=== PATIENT | female | born 1975 | race Caucasian/White ===

== ENCOUNTER 2016-12-18 01:24 | Emergency (ER) | payer OTHER ==
[~2016-12-18] VITALS: Ht 170.2 cm; Wt 150.0 kg
[2016-12-18] MEDS ORDERED: HYDROmorphone 1 MG/ML, 1ML IM ONE ×2 (02:00→04:30)
[2016-12-18] MEDS ORDERED: ONDANSETRON ODT 4 MG PO ONE (02:00)
[2016-12-18] MEDS ORDERED: HYDROmorphone 1 MG/ML, 1ML ONE ×2 (02:14→04:26)
[2016-12-18 02:21] LABS: HEMATOCRIT 41.2 % (34.6-47.8); WHITE BLOOD COUNT 9.5 x10^3/uL (3.4-10)
[2016-12-18 02:23] LABS: ASPARTATE AMINO TRANSFERASE 19 U/L (15-37); BLOOD UREA NITROGEN 9 mg/dL (7-18)
[2016-12-18 02:55] LABS: PATH.CAST-FLAG NOT PRESENT; SPERM-FLAG NOT PRESENT; SRC-FLAG NOT PRESENT; XTAL-FLAG NOT PRESENT; YLC-FLAG NOT PRESENT
[2016-12-18 03:25] VITALS: BP 103/82
[2016-12-19] MEDS ORDERED: OXYC5TAB3 PO (18:37)
[2016-12-19] MEDS ORDERED: TRAZ300T2 PO (18:38)
[2016-12-19] MEDS ORDERED: BUSP10TA PO (18:39)
[2016-12-19] MEDS ORDERED: VENL150C PO (18:39)
[2016-12-19] MEDS ORDERED: ESOM40CA PO (23:17)
[2016-12-19] MEDS ORDERED: DULO30CA2 PO (23:17)
[2016-12-19] MEDS ORDERED: FURO-93 PO (23:17)
[2016-12-19] MEDS ORDERED: RIVA20TA PO (23:17)
[2016-12-19] MEDS ORDERED: TOPI50TA35 PO (23:17)
[2016-12-19] MEDS ORDERED: CYCL-259 PO (23:17)
[2016-12-19] MEDS ORDERED: MONT10TA6 PO (23:17)
[2016-12-19] MEDS ORDERED: POTA99TA24 PO (23:17)
[2016-12-19] MEDS ORDERED: FLUT1AER NAS (23:17)
[2016-12-19] MEDS ORDERED: CIPR500T8 PO (23:17)
[2016-12-19] MEDS ORDERED: METO25TA9 PO (23:17)
[2016-12-19] MEDS ORDERED: CRAN500C PO (23:17)
== END 2016-12-18 04:37 | disposition home or self-care (01) ==
LOC: ED 01:57
DX: N39.0 Urinary tract infection, site not specified (principal); N10 Acute pyelonephritis; R60.0 Localized edema
CPT/HCPCS: 36415; 80053; 81001; 85025; 87086; 93970; 96372; 99285; J1170

== ENCOUNTER 2017-03-02 10:09 | Day surgery (SDC) | payer OTHER ==
[~2017-03-02] VITALS: Ht 170.2 cm; Wt 148.8 kg
[~2017-03-02 10:09] MED LIST: BUSP10TA PO; CIPR500T8 PO; CRAN500C PO; CYCL-259 PO; DOXY100T PO; DULO30CA2 PO; ESOM40CA PO; FLUT1AER NAS; FURO-93 PO; METO-282 PO; MONT10TA6 PO; OXYC5TAB3 PO; POTA99TA24 PO; RIVA20TA PO; TOPI50TA35 PO; TRAZ300T2 PO; VENL150C PO
[2017-03-02] MEDS ORDERED: LACTATED RINGERS 1,000 ML IV SCH (10:49)
[2017-03-02 10:56] VITALS: BP 132/86
[2017-03-02] MEDS ORDERED: PROPOFOL 10 MG/ML, 50ML ONE (12:52)
[2017-03-02] MEDS ORDERED: SUCCINYLCHOLINE 20 MG/ML, 10ML ONE (12:52)
[2017-03-02] MEDS ORDERED: DEXAMETHASONE 4 MG/ML, 1ML ONE (12:52)
[2017-03-02] MEDS ORDERED: PROMETHAZINE 25 MG/ML, 1ML IV PRN (13:30)
[2017-03-02] MEDS ORDERED: LABETALOL 5MG/ML, 20ML IV PRN (13:30)
[2017-03-02] MEDS ORDERED: MIDAZOLAM 1 MG/ML, 2ML IV PRN (13:30)
[2017-03-02] MEDS ORDERED: OXYcodone 5 MG/5 ML ORAL.SOL UDC PO PRN (13:30)
[2017-03-02] MEDS ORDERED: HYDROmorphone 1 MG/ML, 1ML IV PRN (13:30)
[2017-03-02] MEDS ORDERED: FENTANYL PF 100 MCG/2ML IV PRN (13:30)
[2017-03-02] MEDS ORDERED: EPHEDRINE 50 MG/ML, 1ML IVPush PRN (13:30)
[2017-03-02] MEDS ORDERED: ACETAMINOPHEN 325 MG TABLET PO PRN (13:30)
== END 2017-03-02 14:45 ==
LOC: OUT 10:09
PROVIDERS: ATTEND Internal Medicine
DX: K21.0 Gastro-esophageal reflux disease with esophagitis (principal); K22.70 Barrett's esophagus without dysplasia; K29.60 Other gastritis without bleeding; K44.9 Diaphragmatic hernia without obstruction or gangrene; E66.01 Morbid (severe) obesity due to excess calories; Z68.43 Body mass index [BMI] 50.0-59.9, adult; Z88.1 Allergy status to other antibiotic agents; Z88.0 Allergy status to penicillin; Z88.8 Allergy status to other drugs, medicaments and biological substances
CPT/HCPCS: 43239; 88305; J0330; J1100; J2704; J7120

== ENCOUNTER → 2017-08-18 | Outpatient (CLI) | payer BC, MEDICARE ==
[~2017-08-18] MED LIST changes: +CLINDAMYCIN 150 MG/ML, 6ML ONE; +DOXE10CA PO; +MORPHINE; +TORS20TA2 PO; +VANCOMYCIN 1,000 MG ONE
== END | disposition home or self-care (01) ==
LOC: STAR 09:28
PROVIDERS: ATTEND Surgery
DX: Z02.9 Encounter for administrative examinations, unspecified (principal)

== ENCOUNTER 2017-08-24 07:52 | Day surgery (SDC) | payer BC, MEDICARE ==
[~2017-08-24] VITALS: Ht 170.2 cm; Wt 151.2 kg
[~2017-08-24 07:52] MED LIST changes: -CLINDAMYCIN 150 MG/ML, 6ML ONE; -DOXE10CA PO; -MORPHINE; -VANCOMYCIN 1,000 MG ONE
[2017-08-24] MEDS ORDERED: LACTATED RINGERS 1,000 ML IV SCH (08:21)
[2017-08-24] MEDS ORDERED: MORPHINE (08:25)
[2017-08-24 08:27] VITALS: BP 138/85
[2017-08-24] MEDS ORDERED: SCOPOLAMINE PATCH, 1.5MG PATCH.TD72 TD ONE (08:30)
[2017-08-24] MEDS ORDERED: LIDOCAINE-MPF 1%, 2ML INFIL ONE (08:30)
[2017-08-24] MEDS ORDERED: DOXE10CA PO (08:38)
[2017-08-24] MEDS ORDERED: MIDAZOLAM 1 MG/ML, 2ML ONE (09:26)
[2017-08-24] MEDS ORDERED: FENTANYL PF 100 MCG/2ML ONE (09:26)
[2017-08-24] MEDS ORDERED: PROPOFOL 10 MG/ML, 20ML ONE (09:27)
[2017-08-24] MEDS ORDERED: BUPIVACAINE/PF 0.5% ONE (09:31)
[2017-08-24] MEDS ORDERED: HEPARIN 5,000 UNITS/ML, 1ML ONE (09:31)
[2017-08-24] MEDS ORDERED: EPINEPHRINE 1 MG/ML, 1ML ONE (09:32)
[2017-08-24] MEDS ORDERED: LIDOCAINE/PF 1%, 30ML ONE (09:35)
[2017-08-24] MEDS ORDERED: VANCOMYCIN 1,000 MG ONE (09:51)
[2017-08-24] MEDS ORDERED: LABETALOL 5MG/ML, 20ML IV PRN (10:00)
[2017-08-24] MEDS ORDERED: ALBUTEROL/IPRATROPIUM 2.5MG/0.5MG, 3 ML NPPB PRN (10:00)
[2017-08-24] MEDS ORDERED: FENTANYL PF 100 MCG/2ML IV PRN (10:00)
[2017-08-24] MEDS ORDERED: MORPHINE SULFATE 4 MG/ML, 1ML IVPush PRN (10:00)
[2017-08-24] MEDS ORDERED: MEPERIDINE/PF 25MG/0.5ML IVPush PRN (10:00)
[2017-08-24] MEDS ORDERED: PROMETHAZINE 25 MG SUPP PR PRN (10:00)
[2017-08-24] MEDS ORDERED: PROMETHAZINE 12.5 MG SUPP PR PRN (10:00)
[2017-08-24] MEDS ORDERED: hydrALAzine 20 MG/ML, 1ML IV PRN (10:00)
[2017-08-24] MEDS ORDERED: ALBUTEROL SULFATE 2.5 MG/3 ML NPPB PRN (10:00)
[2017-08-24] MEDS ORDERED: OXYcodone 5 MG/5 ML ORAL.SOL UDC PO PRN (10:00)
[2017-08-24] MEDS ORDERED: HYDROmorphone 1 MG/ML, 1ML IV PRN (10:00)
[2017-08-24] MEDS ORDERED: OMNIPAQUE 350 MG/ML, 50 ML BOTTLE IV ONE (10:25)
[2017-08-24] MEDS ORDERED: VISIPAQUE 320MG/ML, 50ML BOTTLE ONE (10:28)
[2017-08-24] MEDS ORDERED: ACETAMINOPHEN 650 MG/20.3 ML UDC ONE (10:34)
[2017-08-24] MEDS ORDERED: OXYcodone 5 MG/5 ML ORAL.SOL UDC ONE (10:35)
[2017-08-24] MEDS ORDERED: MORPHINE SULFATE 4 MG/ML, 1ML ONE (10:39)
== END 2017-08-24 11:50 ==
LOC: OUT 07:52
PROVIDERS: ATTEND Surgery
DX: I82.511 Chronic embolism and thrombosis of right femoral vein (principal); G47.33 Obstructive sleep apnea (adult) (pediatric); Z88.1 Allergy status to other antibiotic agents; Z88.0 Allergy status to penicillin; Z88.8 Allergy status to other drugs, medicaments and biological substances
CPT/HCPCS: 37191; 82962; C1880; J0171; J1644; J2250; J2704; J3010; J3370; J3490; J7120; Q9967

== ENCOUNTER 2017-12-22 22:08 | Emergency (ER) | payer MEDICARE, BC ==
[~2017-12-22] VITALS: Ht 170.2 cm; Wt 132.2 kg
[~2017-12-22 22:08] MED LIST changes: +DOXE10CA PO; +MORPHINE
[2017-12-22 23:14] LABS: BASOPHILS # (AUTO) 0.03 x10^3/uL (0-0.1); BASOPHILS % (AUTO) 0 % (0-1); EOSINOPHILS # (AUTO) 0.36 x10^3/uL (0-0.4); EOSINOPHILS % (AUTO) 4 % (1-7); LYMPHOCYTES # (AUTO) 3.63 x10^3/uL (1-3.4); LYMPHOCYTES % (AUTO) 43 % (22-44); MD NO; MEAN CORPUSCULAR HEMOGLOBIN 31.5 pg (27.0-34.8); MEAN CORPUSCULAR HGB CONC 33.9 g/dL (32.4-35.8); MEAN CORPUSCULAR VOLUME 92.9 fL (80-100); MEAN PLATELET VOLUME 8.3 fL (7.4-10.4); MONOCYTES # (AUTO) 0.49 x10^3/uL (0.2-0.8); MONOCYTES % (AUTO) 6 % (2-9); NEUTROPHILS # (AUTO) 3.91 x10^3/uL (1.8-6.8); NEUTROPHILS % (AUTO) 47 % (42-75); PLATELET COUNT 228 x10^3/uL (130-400); RED BLOOD COUNT 4.46 x10^6/uL (3.82-5.3); RED CELL DISTRIBUTION WIDTH 14.1 % (9.6-15.2)
[2017-12-22 23:25] VITALS: BP 121/74
[2017-12-22 23:27] LABS: ALANINE AMINOTRANSFERASE 38 U/L (12-78); ALBUMIN 3.4 g/dL (3.4-5.0); ANION GAP 6 mmol/L (5-15); CHLORIDE 112 mmol/L (98-107); CREATININE 0.88 mg/dL (0.55-1.02); INTERNATIONAL NORMALIZED RATIO 1.18 (0.93-1.1); PROTHROMBIN TIME 12.2 Seconds (9.6-11.5)
[2017-12-22 23:31] LABS: ALKALINE PHOSPHATASE 48 U/L (45-117); BILIRUBIN,TOTAL 0.2 mg/dL (0.2-1.0); TROPONIN I < 0.015 ng/mL (0.000-0.045)
[2017-12-22 23:54] LABS: MICROSCOPIC NOT IND
[2017-12-23 00:01] LABS: CULTURE INDICATED? NO
== END 2017-12-23 00:22 | disposition home or self-care (01) ==
LOC: ED 12-23 00:12
DX: R10.84 Generalized abdominal pain (principal); I10 Essential (primary) hypertension; F17.210 Nicotine dependence, cigarettes, uncomplicated; M54.5 Low back pain; R39.15 Urgency of urination; M79.606 Pain in leg, unspecified; Z86.718 Personal history of other venous thrombosis and embolism
CPT/HCPCS: 36415; 71045; 80053; 81003; 83690; 83880; 84484; 85025; 85610; 85730; 93005; 99285

== ENCOUNTER 2019-05-14 13:16 | Emergency (ER) | payer BC, MEDICARE ==
[~2019-05-14] VITALS: Ht 170.2 cm; Wt 135.4 kg
[2019-05-14 14:28] LABS: BASOPHILS # (AUTO) 0.03 x10^3/uL (0-0.1); BASOPHILS % (AUTO) 0 % (0-1); EOSINOPHILS # (AUTO) 0.36 x10^3/uL (0-0.4); EOSINOPHILS % (AUTO) 5 % (1-7); LYMPHOCYTES # (AUTO) 3.22 x10^3/uL (1-3.4); LYMPHOCYTES % (AUTO) 43 % (22-44); MD NO; MEAN CORPUSCULAR HEMOGLOBIN 32.1 pg (27.0-34.8); MEAN CORPUSCULAR HGB CONC 33.3 g/dL (32.4-35.8); MEAN CORPUSCULAR VOLUME 96.4 fL (80-100); MEAN PLATELET VOLUME 7.5 fL (7.4-10.4); MONOCYTES # (AUTO) 0.47 x10^3/uL (0.2-0.8); MONOCYTES % (AUTO) 6 % (2-9); NEUTROPHILS # (AUTO) 3.46 x10^3/uL (1.8-6.8); NEUTROPHILS % (AUTO) 46 % (42-75); PLATELET COUNT 302 x10^3/uL (130-400); RED BLOOD COUNT 4.59 x10^6/uL (3.82-5.3); RED CELL DISTRIBUTION WIDTH 13.1 % (9.6-15.2)
[2019-05-14 14:39] LABS: ALANINE AMINOTRANSFERASE 29 U/L (12-78); ALBUMIN 3.9 g/dL (3.4-5.0); ANION GAP 5 mmol/L (5-15); CALCIUM 8.8 mg/dL (8.5-10.1); CHLORIDE 106 mmol/L (98-107); CREATININE 0.97 mg/dL (0.55-1.02)
[2019-05-14 14:41] LABS: ALKALINE PHOSPHATASE 63 U/L (45-117); BILIRUBIN,TOTAL 0.4 mg/dL (0.2-1.0); TOTAL PROTEIN 7.7 g/dL (6.4-8.2)
[2019-05-14 15:30] VITALS: BP 156/103
--- NOTE | 2019-05-14 16:00 | NUR ---
ERP WAS IN FOR RECHECK. D/C INSTRUCTIONS & F/U APPT RV'WD WITH PT, SHE VERBALIZES UNDERSTANDING. AMBULATED OUT OF ED WITH FAMILY WITHOUT DIFFICULTY.
== END 2019-05-14 16:03 | disposition home or self-care (01) ==
LOC: ED 15:45
DX: M79.662 Pain in left lower leg (principal); R10.13 Epigastric pain; I10 Essential (primary) hypertension
CPT/HCPCS: 36415; 80053; 83605; 83690; 85025; 99284

== ENCOUNTER 2020-01-13 20:07 | Emergency (ER) | payer BC, MEDICARE ==
[~2020-01-13] VITALS: Ht 170.2 cm; Wt 133.4 kg
--- NOTE | 2020-01-13 20:45 | NUR ---
45 YEAR OLD FEMALE TO ED FOR BILATERAL LEG SWELLING R> L. SHE HAS HISTORY OF DVT AND IS BEING FOLLOWED BY [facility] W A SURGERY SCHEDULED FOR EARLY FEBRUARY. SHE COPLAINS OF INCREASED RIGHT THIGH TENDERNESS W PALPATION AND SWELLING. ED WORKUP INTIATED. Addendum: 01/13/20 at 2101 by [id number] 45 YEAR OLD FEMALE TO ED FOR BILATERAL LEG SWELLING R> L. SHE HAS HISTORY OF DVT AND IS BEING FOLLOWED BY [facility] W A SURGERY SCHEDULED FOR EARLY FEBRUARY. SHE COPLAINS OF INCREASED RIGHT THIGH TENDERNESS W PALPATION AND SWELLING. ED WORKUP INTIATED. SHE DENIES SOB OR CHEST PAIN.
[2020-01-13] MEDS ORDERED: OXYcodone/APAP 5/325MG TABLET ONE (21:12)
--- NOTE | 2020-01-13 21:15 | NUR ---
TO RADIOLOGY FOR XRAY THEN ULTRASOUND.
[2020-01-13] MEDS ORDERED: OXYcodone/APAP 5/325MG TABLET PO ONE (21:30)
[2020-01-13 21:55] LABS: BASOPHILS % (AUTO) 1 % (0-1); EOSINOPHILS % (AUTO) 5 % (1-7); LYMPHOCYTES % (AUTO) 46 % (22-44); MEAN CORPUSCULAR HEMOGLOBIN 30.9 pg (27.0-34.8); MEAN CORPUSCULAR HGB CONC 33.5 g/dL (32.4-35.8); MEAN PLATELET VOLUME 7.4 fL (7.4-10.4); MONOCYTES % (AUTO) 8 % (2-9); NEUTROPHILS % (AUTO) 40 % (42-75); PLATELET COUNT 280 x10^3/uL (130-400); RED BLOOD COUNT 4.34 x10^6/uL (3.82-5.3); RED CELL DISTRIBUTION WIDTH 13.6 % (9.6-15.2)
[2020-01-13 21:59] LABS: INTERNATIONAL NORMALIZED RATIO 3.21 (0.93-1.1); PROTHROMBIN TIME 33.5 Seconds (9.6-11.5)
[2020-01-13 22:05] LABS: ALANINE AMINOTRANSFERASE 24 U/L (12-78); ALBUMIN 3.5 g/dL (3.4-5.0); ANION GAP 7 mmol/L (5-15); CALCIUM 8.5 mg/dL (8.5-10.1); CHLORIDE 105 mmol/L (98-107); CREATININE 0.89 mg/dL (0.55-1.02)
[2020-01-13 22:08] LABS: ALKALINE PHOSPHATASE 54 U/L (45-117); BILIRUBIN,TOTAL 0.4 mg/dL (0.2-1.0); TOTAL PROTEIN 6.9 g/dL (6.4-8.2)
[2020-01-13 22:35] LABS: MD SCAN
[2020-01-13 23:34] VITALS: BP 128/71
== END 2020-01-13 23:36 | disposition home or self-care (01) ==
LOC: ED 23:02
DX: M25.551 Pain in right hip (principal); G89.29 Other chronic pain; M79.651 Pain in right thigh; I10 Essential (primary) hypertension; E11.9 Type 2 diabetes mellitus without complications; Z86.718 Personal history of other venous thrombosis and embolism
CPT/HCPCS: 36415; 80053; 85025; 85610; 99285